=== PATIENT | female | born 1955 | race Caucasian/White ===

== ENCOUNTER 2022-05-13 12:15 | Inpatient (IN) | payer MEDICARE ==
[~2022-05-13] VITALS: Ht 160 cm; Wt 151.5 kg
[~2022-05-13 12:15] MED LIST: ACETAMINOPHEN325 MG PO; AMLODIPINE BESYL5 MG PO; ASPIRIN EC81 MG PO; CYCLOBENZAPRINE10 MG PO; ENOXAPARIN40 MG/0.4 SC; EUTHYROX100 MCG PO; GLIPIZIDE10 MG PO; IMODIUM CAP 2 MG2 MG PO; JANUMET 50-1,01 EACH PO; LANTUS INS100 UTS/M1 SC; LISINOPRIL10 MG PO; LOPRESSOR 50 MG50 MG PO; NEXIUM40 MG PO; NOVOLIN 70100 UNIT/2 SQ; OMEGA-3 ACID ETH1 GM PO; PRAVASTATIN SOD80 MG PO; VITAMIN D350 MCG PO; ZOLOFT100 MG PO
[2022-05-13 14:03] LABS: HEMOGLOBIN 10.2 gm/dl (12.3-15.3); RED BLOOD COUNT 4.54 M/UL (4.00-5.10); WHITE BLOOD COUNT 7.7 K/UL (4.5-11.0)
[2022-05-13 14:17] LABS: BORDETELLA PARAPERTUSSIS Not Detected (Not Detectd); BORDETELLA PERTUSSIS Not Detected (Not Detectd); CHLAMYDIA PNEUMONIAE Not Detected (Not Detectd); CORONAVIRUS HKU1 Not Detected (Not Detectd); CORONAVIRUS NL63 Not Detected (Not Detectd); CORONAVIRUS OC43 Not Detected (Not Detectd); CORONOAVIRUS 229E Not Detected (Not Detectd); HUMAN METAPNEUMOVIRUS Not Detected (Not Detectd); HUMAN RHINOVIRUS/ENTEROVIRUS Not Detected (Not Detectd); INFLUENZA A Not Detected (Not Detectd); INFLUENZA B Not Detected (Not Detectd); MYCOPLASMA PNEUMONIAE Not Detected (Not Detectd); PARAINFLUENZA VIRUS 1 Not Detected (Not Detectd); PARAINFLUENZA VIRUS 2 Not Detected (Not Detectd); PARAINFLUENZA VIRUS 3 Not Detected (Not Detectd); PARAINFLUENZA VIRUS 4 Not Detected (Not Detectd); RESPIRATORY SYNCYTIAL VIRUS Not Detected (Not Detectd)
[2022-05-13 14:27] LABS: BUN/CREATININE RATIO 30 (0-10)
[2022-05-13 15:10] LABS: SARS-CoV-2 NOT DETECTED (Not Detectd)
[2022-05-13] MEDS ORDERED: HYDRALAZINE HCL25 MG PO (18:05)
[2022-05-13] MEDS ORDERED: LEVEMIR FL100 UNIT/1 SQ (18:06)
[2022-05-13] MEDS ORDERED: LISINOPRIL20 MG PO (18:07)
[2022-05-13] MEDS ORDERED: AMLODIPINE BESY10 MG PO (18:08)
[2022-05-13] MEDS ORDERED: PROTONIX40 MG PO (18:08)
[2022-05-13] MEDS ORDERED: BUMETANIDE1 MG PO (18:10)
[2022-05-14 08:50] LABS: RED BLOOD COUNT 4.54 M/UL (4.00-5.10); WHITE BLOOD COUNT 6.8 K/UL (4.5-11.0)
[2022-05-14 09:23] LABS: BUN/CREATININE RATIO 27 (0-10)
--- NOTE | 2022-05-14 11:32 | NUR ---
PATIENT IS 86% ON ROOM AIR.
--- NOTE | 2022-05-14 11:40 | NUR ---
PATIENT'S OXYGEN SATURATION NOTED TO DROP TO 86% ON ROOM AIR THEN WHEN OXYGEN WAS REAPPLIED AT 3 LITERS VIA NASAL CANNULA, OXYGEN SATURATION INCREASED TO 91%.
[2022-05-15 03:03] LABS: BUN/CREATININE RATIO 28 (0-10)
[2022-05-16 06:11] LABS: HEMOGLOBIN 9.3 gm/dl (12.3-15.3); RED BLOOD COUNT 4.16 M/UL (4.00-5.10); WHITE BLOOD COUNT 5.4 K/UL (4.5-11.0)
[2022-05-16 06:43] LABS: BUN/CREATININE RATIO 25 (0-10)
[2022-05-17 02:48] LABS: HEMOGLOBIN 9.5 gm/dl (12.3-15.3); RED BLOOD COUNT 4.26 M/UL (4.00-5.10); WHITE BLOOD COUNT 5.8 K/UL (4.5-11.0)
[2022-05-17 03:13] LABS: BUN/CREATININE RATIO 24 (0-10)
[2022-05-17] MEDS ORDERED: [UNRECOGNIZED DRUG - OTHER] MC (10:14)
[2022-05-17] MEDS ORDERED: BUMETANIDE2 MG PO (10:14)
[2022-05-17] MEDS ORDERED: LEVEMIR FL100 UNIT/1 SQ (10:14)
[2022-05-17] MEDS ORDERED: ROLLING WALKER (10:14)
[2022-05-17] MEDS ORDERED: MYCOSTATIN CREA15 GM TOP (10:14)
[2022-05-17] MEDS ORDERED: CYCLOBENZAPRINE10 MG PO (10:14)
--- NOTE | 2022-05-17 12:22 | NUR ---
PATIENT O2 SATS DROP TO 87% ON ROOM AIR.
--- NOTE | 2022-05-17 17:33 | NUR ---
CALLED REPORT TO ANITHA AT [facility]. PT HAS O2 TANK TO GO HOME. [facility] TO DELIVER WALKER AND BEDSIDE COMMODE TO PT HOME.
== END 2022-05-18 09:00 | disposition home health service (06) | DRG 291 ==
LOC: ER1 12:15 → M/S 17:28 → CDU 17:28 → M/S 05-14 03:16
PROVIDERS: Internal Medicine; Physician Assistant Medical; ADMIT Family Medicine
PROC: B24BZZZ Ultrasonography of Heart with Aorta (ICD-10-PCS; principal; 2022-05-14)
DX: I11.0 Hypertensive heart disease with heart failure (principal); I50.23 Acute on chronic systolic (congestive) heart failure; J96.01 Acute respiratory failure with hypoxia; Z20.822 Contact with and (suspected) exposure to COVID-19; E66.2 Morbid (severe) obesity with alveolar hypoventilation; Z68.43 Body mass index [BMI] 50.0-59.9, adult; E11.9 Type 2 diabetes mellitus without complications; I08.3 Combined rheumatic disorders of mitral, aortic and tricuspid valves; F17.220 Nicotine dependence, chewing tobacco, uncomplicated; B35.9 Dermatophytosis, unspecified; L89.92 Pressure ulcer of unspecified site, stage 2; E03.9 Hypothyroidism, unspecified; R53.81 Other malaise; M19.90 Unspecified osteoarthritis, unspecified site; Z86.73 Personal history of transient ischemic attack (TIA), and cerebral infarction without residual deficits; Z90.49 Acquired absence of other specified parts of digestive tract; Z82.49 Family history of ischemic heart disease and other diseases of the circulatory system; Z80.9 Family history of malignant neoplasm, unspecified; I25.2 Old myocardial infarction; Z87.01 Personal history of pneumonia (recurrent); Z79.4 Long term (current) use of insulin
CPT/HCPCS: ECHO; 36415; 36600; 71045; 80048; 80053; 82550; 82553; 82803; 82962; 83036; 83735; 83880; 84100; 84439; 84443; 84484; 85025; 85027; 86140; 87633; 93005; 93306; 96374; 96375; 96376; 97116-GP-CQ; 97161; 97166; 97530; 99285; A6212; G0378; J0696; J1650; J7030